=== PATIENT | female | born 1960 | race Caucasian/White ===

== ENCOUNTER 2018-01-06 08:05 | Inpatient (IN) ==
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
[2018-01-06] MEDS: Sod Chloride 0.9% Inj 1,000 ML IV.SIG SCH ×2 (08:45→09:38)
[2018-01-06 08:51] LABS: Baso % (Auto) 0.5 % (0.0-2.0); Eos # (Auto) 0.1 th/mm3 (0.0-0.4); Eos % (Auto) 0.9 % (0.0-4.0); Lymph % (Auto) 26.7 % (9.0-44.0); Mean Corpuscular HGB Conc 35.4 % (32.0-36.0); Mean Corpuscular Hemoglobin 37.5 pg (27.0-34.0); Mean Platelet Volume 8.5 fL (7.0-11.0); Mono # (Auto) 0.3 th/mm3 (0.0-0.9); Mono % (Auto) 4.4 % (0.0-8.0); Neut # (Auto) 5.1 th/mm3 (1.8-7.7); Neut % (Auto) 67.5 % (16.0-70.0); Platelet Count 270 th/mm3 (150-450); Red Blood Count 1.39 mil/mm3 (4.00-5.30); Red Cell Distribution Width 15.5 % (11.6-17.2); White Blood Count 7.5 th/mm3 (4.0-11.0)
[2018-01-06 08:56] LABS: Chloride 104 meq/L (98-107); Potassium 3.4 meq/L (3.5-5.1); Sodium 138 meq/L (136-145)
--- NOTE | 2018-01-06 08:56 | XR ---
EXAM DATE: 01/06/2018 8:54 AM EST AGE/SEX: 57 years / Female INDICATIONS: Shortness of breath, nausea, black stool. CLINICAL DATA: This is the patient's initial encounter. Patient reports that signs and symptoms have been present for 3 days and indicates a pain score of 0/10. MEDICAL/SURGICAL HISTORY: None. None. COMPARISON: [facility], CHEST 1V SINGLE AP, 10/25/2017. . FINDINGS: No significant new focal pleural or parenchymal opacities. The cardiomediastinal contours are unremar kable. Osseous structures are intact. CONCLUSION: No acute abnormality or significant interval change. Electronically signed by: Dragan Jarquin MD 01/06/2018 8:55 AM EST
[2018-01-06 08:59] LABS: Calcium 7.7 mg/dL (8.5-10.1); Hematocrit 14.7 % (35.0-46.0); Hemoglobin 5.2 gm/dL (11.6-15.3)
[2018-01-06 09:00] LABS: Anion Gap 9 meq/L (5-15); Blood Urea Nitrogen 17 mg/dL (7-18); Carbon Dioxide 25.1 meq/L (21.0-32.0); Glucose,Random 149 mg/dL (74-106); Magnesium 1.8 mg/dL (1.5-2.5)
[2018-01-06 09:03] LABS: Alanine Aminotransferase 14 U/L (10-53); Aspartate Aminotransferase 13 U/L (15-37); Glomerular Filtration Rate 72 mL/min (>89)
[2018-01-06 09:05] LABS: Total Protein 5.3 g/dL (6.4-8.2)
[2018-01-06 09:06] LABS: Alkaline Phosphatase 50 U/L (45-117)
[2018-01-06 09:22] LABS: Creatine Kinase 30 U/L (26-192)
[2018-01-06 09:28] LABS: Platelet Estimate Normal (Normal); Platelet Morphology Normal (Normal)
--- NOTE | 2018-01-06 09:29 | CT ---
EXAM DATE: 01/06/2018 9:24 AM EST AGE/SEX: 57 years / Female INDICATIONS: Short of breath, chest pain and dizziness. CLINICAL DATA: This is the patient's initial encounter. Patient reports that signs and symptoms have been present for 4 - 6 days and indicates a pain score of 5/10. MEDICAL/SURGICAL HISTORY: . Scoliosis. Hysterectomy. Fusion, cervical. RADIATION DOSE: 7.10 CTDI (mGy) COMPARISON: No prior exams available for comparison. TECHNIQUE: Volumetric scanning was performed using a multi-row detector CT scanner during bolus infu cori of 75 ml Omnipaque 350 (iohexol) nonionic water-soluble contrast as a single exam dose. The pancho a was post processed with a variety of visualization algorithms including full volume maximum intensi ty projection and sliding thin slab reformation. Using automated exposure control and adjustment of t he mA and/or kV according to patient size, radiation dose was kept as low as reasonably achievable to obtain optimal diagnostic quality images. DICOM format image data is available electronically for r eview and comparison. FINDINGS: Pulmonary Arteries: No filling defects are seen in the pulmonary arteries out to the subsegmental ve ssels. The left and right pulmonary arteries are normal in diameter. Lung: No infiltrates seen. Effusion: None. Mediastinum: No evidence of mediastinal or hilar adenopathy. Other: The axilla is unremarkable. CONCLUSION: 1. This study is negative for pulmonary embolism. 2. No evidence of acute cardiopulmonary process. Electronically signed by: Margarito Brewster MD 01/06/2018 9:28 AM EST
[2018-01-06 10:02] LABS: Activated Partial Thrombo Time 19.6 sec (23.4-31.7)
[2018-01-06 10:20] LABS: Bilirubin,Urine Negative (Negative); Clarity,Urine Clear (Clear); Color,Urine Yellow (Yellw/Straw); Glucose,Urine (UA) Negative (Negative); Leukocyte Esterase,Urine Negative (Negative); Nitrite,Urine Negative (Negative); Specific Gravity,Urine Less/Equal 1.005 (1.002-1.035); Urobilinogen,Urine 0.2 mg/dL (Less than 2)
[2018-01-06 10:22] LABS: Collection Time,Urine 1009 hours
[2018-01-06] MEDS ORDERED: Acetaminophen 325 MG Tablet PO PRN (10:24)
[2018-01-06] MEDS ORDERED: Bisacodyl 10 MG Supp RECTAL PRN (10:24)
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
[2018-01-06] MEDS: Pantoprazole Inj 40 MG Vial IV.PUSH SCH ×2 (10:51→23:06)
[2018-01-06] MEDS: Sod Chloride 0.9% Inj 1,000 ML IV.CONT SCH ×2 (10:52→20:07)
--- NOTE | 2018-01-06 14:06 | MB ---
cc: Chuck Casas MD, Shahabuddin DO Zulfiqar, Hassan MD DATE: 01/06/2018 REASON FOR CONSULTATION: Anemia, melena. HISTORY OF PRESENT ILLNESS: Ms. Patel is a 57-year-old lady who states for about 1 week, she has been having some dark colored stools. She started having palpitations and headaches. This is what brought her into the hospital. She was found to have a hemoglobin of 5.2. She says she has had no previous problems with her hemoglobin. She said she has back issues, so she sees a pain specialist regularly. Does not see a primary care physician here. Previous colonoscopy was about 10 years ago in [place]. Currently, she is having no bleeding. She is receiving blood. No hematemesis or hematochezia. PAST MEDICAL HISTORY: Scoliosis, carpal tunnel syndrome, Raynaud syndrome. PAST SURGICAL HISTORY: Spinal stimulator, carpal tunnel surgery, spinal fusion, hysterectomy, colonoscopy over 10 years ago, tonsillectomy, bone grafts, cervical spinal fusion. SOCIAL HISTORY: No tobacco, no alcohol. FAMILY HISTORY: Noncontributory. CURRENT MEDICATIONS: Include: 1. Pantoprazole. 2. Lactulose. PHYSICAL EXAMINATION: GENERAL: Reveals a well-nourished lady in no apparent distress. VITAL SIGNS: Stable. HEAD AND NECK: Anicteric sclerae. CHEST: Bilateral air entry with rales. ABDOMEN: Soft, nontender. No hepatosplenomegaly. Bowel sounds are present. CENTRAL NERVOUS SYSTEM: Nonfocal. RECTAL: Deferred at this time. LABORATORY DATA: Reveal hemoglobin of 5.2 with an MCV of 106. INR is 1. Creatinine is 0.82. Liver functions are normal. IMPRESSION: Gastrointestinal bleeding with anemia. RECOMMENDATIONS: EGD/colonoscopy discussed with the patient. This will be scheduled for tomorrow. Complete transfusion as ordered. Protonix as ordered. Liquid diet today, n.p.o. after midnight. Further recommendations to follow after the endoscopy and colonoscopy tomorrow. Thank you for this referral. MD GLADYS Leiva/crissy , 01:51 PM , 01:57 PM
[2018-01-06 14:12] LABS: Reticulocyte Percent 10.5 % (0.4-3.0)
[2018-01-06 14:14] LABS: Creatine Kinase 39 U/L (26-192)
[2018-01-06] MEDS ORDERED: PEG 3350/E-Lyte Soln 4000 ML Bottle PO ONE (15:00)
--- NOTE | 2018-01-06 15:24 | ECG ---
Date Performed: 01/06/2018 Time Performed: 08:20:26 PTAGE: 57 years EKG: ELECTRONIC ATRIAL PACEMAKER NONSPECIFIC ST & T-WAVE ABNORMALITY ABNORMAL RHYTHM ECG NO PREVIOUS TRACING DOCTOR: Andrew Kwan Interpretating Date/Time 01/06/2018 15:20:37
[2018-01-06 17:34] LABS: Iron 41 mcg/dL (50-170)
[2018-01-06 17:59] LABS: % Iron Saturation 15.2 % (20-50); Ferritin 22 ng/mL (8-252); Folate 19.5 ng/mL (3.1-17.5); Total Iron Binding Capacity 270 mcg/dL (250-450); Vitamin B12 322 pg/mL (193-986)
[2018-01-06 19:59] LABS: Hematocrit 27.8 % (35.0-46.0); Hemoglobin 9.4 gm/dL (11.6-15.3)
[2018-01-07] MEDS: Sod Chloride 0.9% Inj 1,000 ML IV.CONT SCH (06:30)
[2018-01-07] MEDS ORDERED: fentaNYL Citrate Inj 100 MCG/2 ML Ampul ONE (09:18)
--- NOTE | 2018-01-07 10:32 | GIPROC ---
[facility] [address] [place] [address], [id number] COLONOSCOPY PROCEDURE REPORT EXAM DATE: 01/07/2018 PATIENT NAME: Akilah Patel MR #: [id number] BIRTHDATE: 1960 ENDOSCOPIST: Jeff Wagner MD ORDER #: [id number] HEMSTITCHING MACHINE OPERATOR: Radhika Bower and Brittany Moore STATUS: inpatient INDICATIONS: The patient is a 57 yr old female here for a colonoscopy due to rectal bleeding and iron deficiency anemia PROCEDURE PERFORMED: Colonoscopy, diagnostic MEDICATIONS: None and Per Anesthesia. PREP QUALITY: poor ESTIMATED BLOOD LOSS: None CONSENT: The patient understands the risks and benefits of the procedure and understands that these risks include, but are not limited to: sedation, allergic reaction, infection, perforation and/or bleeding. Alternative means of evaluation and treatment include, among others: physical exam, x-rays, and/or surgical intervention. The patient elects to proceed with this endoscopic procedure. medical equipment was checked for proper function. Hand hygiene and appropriate measures for infection prevention was taken. After the risks, benefits and alternatives of the procedure were thoroughly explained, Informed consent was verified, confirmed and timeout was successfully executed by the treatment team. A digital exam revealed no abnormalities of the rectum The Pentax [id number] endoscope was introduced through the anus and advanced to the cecum, which was identified by both the appendix and ileocecal valve. The instrument was then slowly withdrawn as the colon was fully examined. COLON FINDINGS: Mild diverticulosis was noted in the sigmoid colon. No active bleeding or SRH seen. Retroflexed views revealed internal hemorrhoids and Retroflexed views revealed small internal hemorrhoids The scope was then completely withdrawn from the patient and the procedure terminated. PROCEDURE WITHDRAWAL TIME:8minutes ADVERSE EVENTS: There were no complications. IMPRESSIONS: 1. Mild diverticulosis was noted in the sigmoid colon 2. No active bleeding or SRH seen 3. Retroflexed views revealed internal hemorrhoids RECOMMENDATIONS: 1. Monitor serial CBC 2. Continue supprtive tx RECALL: Jeff Wagner MD eSigned: Jeff Wagner MD 01/07/2018 10:31 AM cc:
--- NOTE | 2018-01-07 10:49 | GIPROC ---
[facility] [address] [place] [address], [id number] EGD PROCEDURE REPORT EXAM DATE: 01/07/2018 PATIENT NAME: Akilah Patel MR #: [id number] BIRTHDATE: 1960 ATTENDING: Jeff Wagner MD ORDER #: [id number] PIPE AND TANK FABRICATOR: Radhika Bower and Brittany Moore STATUS: inpatient INDICATIONS: The patient is a 57 yr old female here for an EGD due to unexplained iron deficiency anemia and melena PROCEDURE PERFORMED: EGD, diagnostic MEDICATIONS: None and Per Anesthesia. TOPICAL ANESTHETIC: none CONSENT: The patient understands the risks and benefits of the procedure and understands that these risks include, but are not limited to: sedation, allergic reaction, infection, perforation and/or bleeding. Alternative means of evaluation and treatment include, among others: physical exam, x-rays, and/or surgical intervention. The patient elects to proceed with this endoscopic procedure. medical equipment was checked for proper function. Hand hygiene and appropriate measures for infection prevention was taken. After the risks, benefits and alternatives of the procedure were thoroughly explained, Informed consent was verified, confirmed and timeout was successfully executed by the treatment team. The patient was anesthetized with topical anesthesia and the EC-[id number] (Pedi C) endoscope was introduced through the mouth and advanced to the second portion of the duodenum. Retroflexed views revealed no abnormalities The gastroscope was then slowly withdrawn and removed. ESOPHAGUS: There was LA Class A esophagitis noted. STOMACH: The mucosa of the stomach appeared normal. DUODENUM: The duodenal mucosa appeared normal in the entire duodenum. No active bleeding or SRH seen. ADVERSE EVENTS: There were no complications. IMPRESSIONS: 1. There was LA Class A esophagitis noted 2. The mucosa of the stomach appeared normal 3. Normal duodenal mucosa in the entire duodenum 4. No active bleeding or SRH seen 5. Retroflexed views revealed no abnormalities RECOMMENDATIONS: 1. Monitor serial CBC 2. Supportive Tx PATIENT CONDITION: stable DISPOSITION: Inpatient REPEAT EXAM: Jeff Wagner MD eSigned: Jeff Wagner MD 01/07/2018 10:48 AM cc:
[2018-01-07 11:31] VITALS: O2SAT 100
--- NOTE | 2018-01-07 13:02 | P.DS ---
Date of admission: 01/06/18 10:24 Primary care physician: UNKNOWN Attending physician on discharge: Julieth Arguelles Anticipated date of discharge: 01/07/18 Brief History from admission: Ms. Patel is a pleasant 57 year old female with a history of spinal fusion, scoliosis who presents to the ED on 01/06/2018 due to dark stool, dizziness, lightheadedness, chest tightness that started on Tuesday01/01/2018. Patient started taking laxative Senna several days ago. On 01/01/2018, she noticed dark stool and again 2 days later. She usually walks 2-3 miles without any difficulty. However, on a recent walk, she had to stop due to dyspnea and chest tightness. Similar episodes occurred at home as well. She again noted dark stool. Her symptoms kept getting worse. She also noticed tachycardia even at rest. She denies any nausea, vomiting. No cough, fever, chills. No changes in bladder habits. In the ED, her Hgb was 5.2. Past medical history: Scoliosis, carpal tunnel syndrome, Raynaud's syndrome Past surgical history: Spinal fusion, spinal stimulator, carpal tunnel surgery Social history: Patient denies using tobacco or alcohol. Family history: Mother has hypertension. Mother and father both alive in their 90s. Patient update on day of discharge: Patient is doing well. Tolerated diet well. She underwent EGD/Colonoscopy. Hgb is above 9.0. DS: Medications - Discharge Medications Prescriptions: pantoprazole [Protonix] 40 mg PO BID #60 tab DS: Summary Hospital Course: Ms. Patel is a pleasant 57-year-old female with a history of spinal fusion, scoliosis who presents to the emergency department today due to worsening fatigue, dizziness and lightheadedness as well as 2-3 episodes of chest tightness. Upon arrival, patient's hemoglobin was 5.2. Patient was given 2 units of PRBCs. GI was consulted. Patient underwent EGD and Colonoscopy on the next day (01/07/2018). Hgb was 9.4 on 01/07/2018. EGD and Colonoscopy did not identify any acute source of bleed. Patient tolerated diet well. We recommended patient to continue Protonix 40mg BID for 4 weeks then once a day. Patient verbalized understanding. She was subsequently discharged home. - Time Spent with Patient Total time spent providing and/or coordinating discharge services: Less than 30 minutes - Quality: VTE Deep Vein Thrombosis/Pulmonary Embolism Present on Admission: No Exam Vital signs: Vital Signs 01/06/18 13:17 01/06/18 15:29 01/06/18 15:45 Temperature 98.4 F 98.5 F 98.8 F Pulse Rate 111 H 90 92 H Respiratory Rate 15 13 Blood Pressure 104/68 91/58 L 90/65 L Pulse Oximetry 100 100 01/06/18 16:00 01/06/18 17:00 01/06/18 18:00 Temperature Pulse Rate 94 H 100 H 96 H Respiratory Rate 14 25 H 20 Blood Pressure 95/61 L 112/86 Pulse Oximetry 100 100 100 01/06/18 18:01 01/06/18 19:00 01/06/18 20:00 Temperature 98.6 F Pulse Rate 92 H 94 H 92 H Respiratory Rate 26 H 21 12 Blood Pressure 114/68 107/71 Pulse Oximetry 100 100 01/07/18 00:00 01/07/18 04:00 01/07/18 08:53 Temperature 98.7 F 97.5 F L 98.2 F Pulse Rate 100 H 82 81 Respiratory Rate 40 H 20 14 Blood Pressure 99/54 L 102/66 107/72 Pulse Oximetry 98 01/07/18 10:26 01/07/18 10:54 01/07/18 12:00 Temperature 97.7 F Pulse Rate 87 79 Respiratory Rate 14 14 16 Blood Pressure 85/56 L 89/56 L Pulse Oximetry 100 Intake & Output 01/06/18 01/07/18 01/07/18 18:59 06:59 18:59 Intake Total 2840 / 2840 1999 1200 / 1200 Balance 2840 / 2840 1999 1200 / 1200 Weight 53.7 kg 59.9 kg Intake: IV 1999 NS Inj 1,000 ML @ 100 mls/hr IV 1999 .CONT .Q10H DIVYA Rx#:[id number] NS Inj 1,000 ML @ 2000 mls/hr 1999 IV.SIG Q30M DIVYA Rx#:[id number] Anesthesia Amount 600 / 600 Other 40 / 40 600 / 600 Rbc As-3 Leukoreduced Unit [id number] Rbc As-3 Leukoreduced Unit [id number] Intake (Blood Product) Amt 800 / 800 Rbc As-3 Leukoreduced Unit 400 / 400 [id number] Rbc As-3 Leukoreduced Unit 400 / 400 [id number] Other: Other Intake Source Rbc As-3 Leukoreduced Unit Saline Solution [id number] Rbc As-3 Leukoreduced Unit Saline Solution [id number] # Voids 5 Date of Last Bowel Movement 01/05/18 01/08/18 # Bowel Movements 3 11 Weight On Admission 55 kg Results Procedures completed during hospitalization: 01/07/2018 EGD IMPRESSIONS: 1. There was LA Class A esophagitis noted 2. The mucosa of the stomach appeared normal 3. Normal duodenal mucosa in the entire duodenum 4. No active bleeding or SRH seen 5. Retroflexed views revealed no abnormalities Colonoscopy IMPRESSIONS: 1. Mild diverticulosis was noted in the sigmoid colon 2. No active bleeding or SRH seen 3. Retroflexed views revealed internal hemorrhoids Labs on day of discharge: Labs from last 24 hours 01/06/18 01/06/18 01/06/18 19:35 12:39 10:58 Hgb 9.4 L D Hct 27.8 L Retic Count Absolute Retic Iron 41 L TIBC 270 % Saturation 15.2 L Ferritin 22 Total Creatine Kinase 39 Troponin I Less than 0.02 L Vitamin B12 322 Folate 19.5 H MTS Gel Crossmatch See Detail 01/06/18 08:30 Hgb Hct Retic Count 10.5 H Absolute Retic 137.1 Iron TIBC % Saturation Ferritin Total Creatine Kinase Troponin I Vitamin B12 Folate MTS Gel Crossmatch - Impressions ITS Impressions Chest CTA 01/06/18 08:30 CONCLUSION: 1. This study is negative for pulmonary embolism. 2. No evidence of acute cardiopulmonary process. Chest X-Ray 01/06/18 08:31 CONCLUSION: No acute abnormality or significant interval change. Discharge Plan - Discharge Disposition Patient Disposition: 01 Discharge Home - Discharge Condition Condition: Good - Discharge Order Discharge Orders: Discharge Order (Routine); Ordered 01/07/18 Ordered By: Julieth Arguelles - Discharge Details Anticipated Discharge Date: 01/07/18 - Physicians Team Primary Care Provider: UNKNOWN, Attending Provider: Julieth Arguelles Other Providers: Jeff Wagner MD
[2018-01-07] MEDS: Pantoprazole Inj 40 MG Vial IV.PUSH SCH (13:09)
[2018-01-07 14:45] VITALS: BP 105/70; PULSE 90; RESP 19; TEMP 97.6
== END 2018-01-07 19:56 | disposition home or self-care (01) ==
LOC: PHED 08:05 → PHEDA 10:24 → PHICU 11:40
PROVIDERS: ADMIT Hospitalist; ATTEND Hospitalist
PROC: COLONOS (2018-01-07 10:03)
PROC: PANENDO (2018-01-07 10:03)